=== PATIENT | female | born 2000 | race Caucasian/White ===

== ENCOUNTER 2021-12-15 13:14 | Observation (INO) | payer OTHER, SELFPAY ==
[2021-12-15 13:37] VITALS: BP 123/58; PULSE 80
[2021-12-15 13:42] VITALS: BMI 34.1
--- NOTE | 2021-12-15 13:44 | OBADM ---
This patient, Jessica Paredes, admitted to the OB room OB Post 115 for observation. Patient/family oriented to hospital policies and general routines including ID bracelet, bed and alarms, visiting hours, pain management, procedures, bathroom and other care routines, personal items, smoking policy, room service/diet, and visiting hours. Patient/Family are encouraged to report perceived risks to care and to ask questions if they do not understand what they are told or what they should do.
[2021-12-15 13:46] VITALS: BP 122/63; PULSE 80
--- NOTE | 2021-12-15 13:59 | PC.NURSE ---
1356--Reported pt's symptoms to Simón Fonseca CNM. Instructions given for pt to tran binder to help support abdomen and continue Tylenol PRN.
[2021-12-15 14:01] VITALS: BP 82/58; PULSE 72
[2021-12-15 14:10] VITALS: TEMP 36.6
--- NOTE | 2021-12-18 07:20 | PM.OBTRLD ---
OB - Triage/Final Diagnosis Visit Information Date of evaluation: 12/15/21 Reason for evaluation: threatened labor Comments/Additional reasons for admission: I have assessed the risk for this patient, Jessica Knight Reggie, and determined that she would benefit from observation care.
== END 2021-12-15 14:25 | disposition home or self-care (01) ==
PROVIDERS: Admitting Provider Obstetrics & Gynecology; Visit Provider Obstetrics & Gynecology
DX: O47.02 False labor before 37 completed weeks of gestation, second trimester (principal); Z3A.22 22 weeks gestation of pregnancy
CPT/HCPCS: G0378; G0379

== ENCOUNTER 2022-01-14 08:16 | Emergency (ER) | payer OTHER, SELFPAY ==
--- NOTE | 2022-01-14 08:21 | ED.URI ---
HPI - URI/Sore Throat General Chief Complaint: Upper Respiratory Infection Stated Complaint: Coughing up flem Time Seen by Provider: 01/14/22 08:28 Source: patient, RN notes reviewed and old records reviewed Mode of arrival: ambulatory Limitations: no limitations History of Present Illness HPI Narrative: 21-year-old female presents to the [facility] with complaints of cough for 1 week. Has tried an allergy relief medication. Denies any fevers. Denies any chest pain or shortness of breath. Patient is with twins (27 weeks), OB is [facility] Dr. Cunningham. Has not called OB Related Data Home Medications Medication Instructions Recorded Confirmed Classic 1 tablet PO DAILY 12/15/21 01/14/22 aspirin 81 mg chewable tablet 81 mg PO DAILY 12/15/21 01/14/22 levothyroxine 100 mcg tablet 1 tablet PO DAILY 12/15/21 01/14/22 sertraline 50 mg tablet 50 mg PO DAILY 01/14/22 01/14/22 Allergies Allergy/AdvReac Type Severity Reaction Status Date / Time No Known Allergies Allergy Verified 01/14/22 08:23 Review of Systems Review of Systems: All systems reviewed & are unremarkable except as noted in HPI and below Constitutional: Constitutional: Reports no additional constitutional complaints, Denies chills and Denies fever(s) Eyes: Eyes: Reports no additional eye complaints ENT: Reports as per HPI and Reports nasal congestion Cardiovascular: Cardiovascular: Reports no additional cardiovascular complaints Respiratory: Respiratory: Reports as per HPI and Reports cough Gastrointestinal: Gastrointestinal: Reports no additional gastrointestinal complaints Musculoskeletal: Musculoskeletal: Reports no additional musculoskeletal complaints Integumentary/Breasts: Skin/Breast: Reports system reviewed and no additional complaints, except as docu Neurologic: Reports system reviewed and no additional complaints, except as documented Psychiatric: Psychiatric: Reports no additional psychiatric complaints Allergic/Immunologic: Allergic/Immunologic: Reports no additional allergic/immunologic complaints [facility] Past Medical History Medical History (Updated 01/14/22 @ 14:24 by Jen Nichols APRN) No significant medical problems Social History Social History (Updated 01/14/22 @ 14:22 by Jen Nichols APRN) Gender identity (if verbalized by the patient): Female Comments At the time of my signature, I reviewed and agree with the nursing past medical, surgical, social, and family history. There is no relevant family history pertinent to the patient complaint. Exam Const: General: healthy appearing, no acute distress and alert Nutritional Appearance: well nourished Orientation/consciousness: patient oriented x3 Limitations: no limitations HENMT: Head: normal to inspection Ears: external ears normal, EAC's normal and TM abnormal bulging bilateral and with fluid behind the TM bilateral; not dull, not erythematous and with no loss of landmarks Throat: uvula midline, postnasal drainage and no uvular edema Eyes: General: appearance normal, both eyes and all related structures Pupils: Equal, round and reactive pupils present Neck: Neck: normal visual inspection, no lymphadenopathy and no meningeal signs Chest: Chest palpation & inspection: normal inspection of the chest Resp: Effort & Inspection: normal respiratory effort and no use of accessory muscles Auscultation: clear to auscultation bilaterally, no crackles, no rales, no rhonchi and no wheezes Cardio: Rate: regular rate Rhythm: regular rhythm Back/Spine/Pelvis: Cervical Spine: normal cervical lordosis Thoracic/Lumbar Spine: thoracic and lumbar spine normal to inspection Skin: General skin exam: normal color Rashes: no rashes Wounds: no wounds Neuro: General: patient oriented x3, moves all extremities, no meningeal signs and no focal motor deficits Cranial nerves: Yes Equal, round and reactive pupils present Speech: normal speech G
[2022-01-14 08:22] VITALS: BP 129/60; PULSE 85; RESP 20; TEMP 36.1; O2SAT 99
== END 2022-01-14 08:40 | disposition home or self-care (01) ==
PROVIDERS: Emergency Provider Nurse Practitioner
DX: O99.891 Other specified diseases and conditions complicating pregnancy (principal); Z3A.27 27 weeks gestation of pregnancy; H65.03 Acute serous otitis media, bilateral; O90.89 Other complications of the puerperium, not elsewhere classified; R09.82 Postnasal drip
CPT/HCPCS: 99211; G0463

== ENCOUNTER 2022-02-24 15:25 | Outpatient (RCR) | payer OTHER, SELFPAY ==
[2022-02-24 17:47] LABS: Appearance Urine Slightly Cloudy (Clear); Bilirubin Urine Negative (Negative); Blood Urine Negative (Negative); Color Urine Yellow (Yellow); Glucose Urine UA Negative (Negative); Ketones Urine Negative (Negative); Leukocyte Esterase Ur Negative LEU/UL (NEGATIVE); Nitrate Urine Negative (Negative); Protein Urine Negative (Negative); Specific Grav Ur 1.015 (1.001-1.035); Urobilinogen Urine 0.2 mg/dL (<2.0)
[2022-02-24 17:53] LABS: Add Urine Microscopic? YES; Amorphous Sediment Urine Few; Bacteria Urine Trace /hpf; RBC Urine 0-2 /hpf (0-2); Squamous Epithelial Cell Urine Rare /hpf (Few); WBC Urine 0-3 /hpf (0-3)
[2022-02-24 19:31] VITALS: BP 136/66; PULSE 48
== END 2022-05-25 23:59 | disposition home or self-care (01) ==
LOC: ANHOBOP 15:25
PROVIDERS: Visit Provider Obstetrics & Gynecology
DX: O30.003 Twin pregnancy, unspecified number of placenta and unspecified number of amniotic sacs, third trimester (principal); Z3A.33 33 weeks gestation of pregnancy
CPT/HCPCS: 59025; 81001; 87086; 87088; 87147

== ENCOUNTER 2022-03-27 11:58 | Outpatient (CLI) | payer OTHER, SELFPAY ==
[2022-03-27 12:47] LABS: Total Volume 24 Hour Urine 800 ml
[2022-03-27 12:55] LABS: Total Protein Urine 24 Hr 360 mg/24hr (28-141); Total Protein Urine Random 45 mg/dL
== END 2022-03-27 11:59 | disposition home or self-care (01) ==
LOC: ANHLAB 12:05
PROVIDERS: Visit Provider Obstetrics & Gynecology
DX: O13.9 Gestational [pregnancy-induced] hypertension without significant proteinuria, unspecified trimester (principal); Z3A.00 Weeks of gestation of pregnancy not specified
CPT/HCPCS: 81050; 84156

== ENCOUNTER 2022-03-28 05:51 | Inpatient (IN) | payer OTHER, SELFPAY ==
[2022-03-28] VITALS (170 sets, daily range): BP systolic 83–156; BP diastolic 50–83; PULSE 52–86; RESP 16–18; TEMP 36.2–37.3; O2SAT 94–100; BMI 40.9
--- OUTSIDE RECORDS SUMMARY | 2022-03-28 05:57 | XMS_ITS ---
:2000 Author Organization [facility] Address [address] [place] [address] Phone Care Team Providers Name Role Phone PAMELA RODRIGUEZ MD Primary Care Provider [phone] Problems Includes: Active, inactive, and resolved Problems All Visits Onset Date - Resolved Date - Provider Condition St atus Time Time Depression with 02/26/2021 - AVIVA Silver Active Anxiety 2:54PM ELYSSA FUEL HOUSE ATTENDANT-BC Last Documented On 02/26/2021 2:54PM ; [facility] Primary Hypothyroidism 11/19/2018 - 12:00AM AVIVA BERGERON FUEL HOUSE ATTENDANT-BC Active Last Documented On 11/19/2018 1:50PM ; [facility] Vitamin D Deficiency 11/19/2018 - 12:00AM AVIVA SANFORD FUEL HOUSE ATTENDANT-BC Active Last Documented On 12/16/2019 1:25PM ; [facility] Plan of Treatment Pending Tests Order Diagnosis Results Due Ordering Provi makenzie Lab TSH WITH REFLEX TO FREE 01/24/22 GARDENIA BERGERON T4 FUEL HOUSE ATTENDANT-BC Lab VITAMIN D PANEL 03/04/22 AVIVA SANFORD FUEL HOUSE ATTENDANT-BC Referrals To Diagnosis Upper Marker Unspecified abnormal ities of heart beat Findings
--- OUTSIDE RECORDS SUMMARY | 2022-03-28 05:57 | XMS_ITS ---
Care Plan - [facility] Created on:March 28, 2022 Patient:ADELFO HERRERA Sex:Female :2000 Author Organization [facility] Address [address] [place] [address] Phone Care Team Providers Name Role Phone JENNIFER UNDERWOOD, PAMELA Rivera Primary Care Provider [phone]
--- OUTSIDE RECORDS SUMMARY | 2022-03-28 05:58 | XMS_ITS ---
:2000 Author Care Team Providers Name Role Phone CunninghamKinga avitiase Primary Care Provider Unavailable Allergies Code Code System Name Reaction Severity Status Onset NKDA ? Medications Name Status Start Date Stop Date ? ? ergocalciferol (vitamin D2) 1,250 mcg (50,000 unit) capsule Acti ve ? Not available TAKE 1 CAPSULE BY MOUTH EVERY WEEK escitalopram 10 mg tablet Completed ? 2021 TAKE 1 TABLET BY MOUTH DAILY levothyroxine Completed ? 11/26/2021 levothyroxine 100 mcg tablet Active ? Not available TAKE 1 TABLET BY MOUTH DAILY levothyroxine 75 mcg tablet Completed ? 09/07 TAKE 1 TABLET BY MOUTH DAILY metoclopramide 10 mg tablet Active ? Not available TAKE 1 TABLET BY MOUTH FOUR TIMES DAILY sertraline 50 mg tablet Active ? Not avai lable valacyclovir 500 mg tablet Active ? Not a vailable TAKE 1 TABLET BY MOUTH TWICE DAILY Problems Name Status Onset Date Source ? Active 10/03/2021 ? Group B Streptococcus Carrier Active 02/26/2022 ? Hypothyroidism Active ? ? Anxiety Active ? ? Dichorionic Diamniotic Twin Active ? ? Procedures Date Name Performed by ? 10/03/2021 US, Obstetric, 1St Trimester [place] [address] [place] [address] ([address]) 10/03/2021 US, Obstetric, 1St Trimester, Additional [place] [address]
--- OUTSIDE RECORDS SUMMARY | 2022-03-28 05:58 | XMS_ITS | Encounter Summary ---
:2000 Author Reason for Visit OB visit Assessment and Plan 1. Dichorionic diamniotic twin pregnanc y Discussion Note: None recorded.Patient educational handouts: No information available. Plan of Care Reminders Provider Appointments None recorded. ? ? Lab None recorded. ? ? Referral None recorded. ? ? Procedures None recorded. ? ? Surgeries None recorded. ? ? Imaging None recorded. ? ? Medications Name Start Date ? ? ergocalciferol (vitamin D2) 1,250 mcg (50,000 unit) ca psule ? TAKE 1 CAPSULE BY MOUTH EVERY WEEK levothyroxine 100 mcg tablet ? TAKE 1 TABLET BY MOUTH DAILY metoclopramide 10 mg tablet ? TAKE 1 TABLET BY MOUTH FOUR TIMES DAILY sertraline 50 mg tablet ? TAKE 1 TABLET BY MOUTH EVERY DAY valacyclovir 500 mg tablet ? TAKE 1 TABLET BY MOUTH TWICE DAILY Medications Administered None recorded. Vitals Height Weight BMI Blood Pressure 5 ft 6.25 in 219 lbs 35.1 kg/m2 124/78 mm[Hg] Results Lab Results None recorded. Allergies Code Code System Name Reaction Severity Onset NKDA ? ? ? Problems Name Status Onset Date Source ? Active 10/03/2021 ? Group B Streptococcus Carrier Active 02/26/2022 ? Hypothyroidism Active ? ? Anxiety Active ? ? Dichorionic Diamniotic Twin Active ? ? Procedures None recorded. Vaccine List None recorded. Social History Tobacco Smoking Status Unknown If Ever Smoked What type of diet are you following? REGULAR What is the high
--- OUTSIDE RECORDS SUMMARY | 2022-03-28 05:58 | XMS_ITS | Clinical Summary ---
:2000 Author Organization [facility] Address [address], [place] Phone Care Team Providers Name Role Phone PAMELA RODRIGUEZ MD Primary Care Provider [phone] Reason for Visit and Chief Complaint The Chief Complaint is: WWE, no c/o, no new partners. Five partners in her lifetime Problems Includes: Problems addressed during this encounter and other active Problems All Visits Onset Date - Resolved Date - Provider Condition St atus Time Time Depression with 02/26/2021 - AVIVA Silver Active Anxiety 2:54PM ELYSSA IGNITER CAPPER-BC Last Documented On 02/26/2021 2:54PM ; [facility] Primary Hypothyroidism 11/19/2018 - 12:00AM AVIVA BERGERON IGNITER CAPPER-BC Active Last Documented On 11/19/2018 1:50PM ; [facility] Vitamin D Deficiency 11/19/2018 - 12:00AM AVIVA Hanson ARGRAVE IGNITER CAPPER-BC Active Last Documented On 12/16/2019 1:25PM ; [facility] Plan of Treatment - Clinical summary provided to patient Assessments Includes: Assessments from this encounter - NORMAL FEMALE EXAM [Z01.419 - Encounte r for gynecological examination (general) (routine) without abnormal findings] Instructions Includes: Instructions from this encounter
--- OUTSIDE RECORDS SUMMARY | 2022-03-28 05:58 | XMS_ITS | Encounter Summary ---
:2000 Author Reason for Visit OB visit Assessment and Plan 1. Dichorionic diamniotic twin pregnanc y 2. Group B Streptococcus carrier Discussion Note: None recorded.Patient educational handouts: No [...] BMI Blood Pressure 5 ft 6.25 in 238 lbs 38.1 kg/m2 129/77 mm[Hg] Results Lab Results None recorded. Allergies [...] If Ever Smoked What type of diet ar
--- OUTSIDE RECORDS SUMMARY | 2022-03-28 05:58 | XMS_ITS | Clinical Summary ---
:2000 Author Organization [facility] Address [address] [place] [address] Phone Care Team Providers Name Role Phone PAMELA RODRIGUEZ MD Primary Care Provider [phone] Reason for Visit and Chief Complaint The Chief Complaint is: pt is here for check up on escitalopram. pt states it is working good for her Problems Includes: Problems addressed during this encounter and other active Problems Current Visit Onset Date - Resolved Date - Provider Condition S tatus Time Time Depression with 02/26/2021 - AVIVA Silver Active Anxiety 2:54PM ELYSSA PEDIATRIC SURGEON-BC Last Documented On 02/26/2021 2:54PM ; [facility] Past Visits Onset Date - Resolved Date - Provider Condition St atus Time Time Primary Hypothyroidism 11/19/2018 - AVIVA Silver Activ e 12:00AM ELYSSA PEDIATRIC SURGEON-BC Last Documented On 11/19/2018 1:50PM ; [facility] Vitamin D Deficiency 11/19/2018 - 12:00AM AVIVA Silver H ARGRAVE PEDIATRIC SURGEON-BC Active Last Documented On 12/16/2019 1:25PM ; [facility] Plan of Treatment Pending Tests Order Diagnosis Results Due Ordering Provi makenzie Lab TSH WITH REFLEX TO FREE 01/24/22 GARDENIA MOGRAVE T4 PEDIATRIC SURGEON-BC [place]
--- OUTSIDE RECORDS SUMMARY | 2022-03-28 05:58 | XMS_ITS | Encounter Summary ---
:2000 Author Reason for Visit OB visit Assessment and Plan 1. Dichorionic diamniotic twin pregnanc y 2. Anxiety ? Zoloft 50 mg tablet 3. Hypothyroidism Discussion Note: None recorded.Patient educational handouts: No [...] BMI Blood Pressure 5 ft 6.25 in 216 lbs 34.6 kg/m2 128/77 mm[Hg] Results Lab Results None recorded. Allergies [...]
--- OUTSIDE RECORDS SUMMARY | 2022-03-28 05:58 | XMS_ITS | Encounter Summary ---
[...] BMI Blood Pressure 5 ft 6.25 in 229 lbs 36.7 kg/m2 113/67 mm[Hg] Results Lab Results None recorded. Allergies [...] type of diet are you following? REGULAR Are you able t
--- OUTSIDE RECORDS SUMMARY | 2022-03-28 05:58 | XMS_ITS | Clinical Summary ---
:2000 Author Organization [facility] Address [address], [place] Phone Care Team Providers Name Role Phone PAMELA RODRIGUEZ MD Primary Care Provider [phone] Reason for Visit and Chief Complaint The Chief Complaint is: Med check and Pt would like to get her thyroid labs done Problems Includes: Problems addressed during this encounter and other active Problems Current Visit Onset Date - Resolved Date - Provider Condition S tatus Time Time Depression with 02/26/2021 - AVIVA Silver Active Anxiety 2:54PM ELYSSA SR SOLUTIONS CONSULTANT-BC Last Documented On 02/26/2021 2:54PM ; [facility] Primary Hypothyroidism 11/19/2018 - 12:00AM AVIVA BERGERON SR SOLUTIONS CONSULTANT-BC Active Last Documented On 11/19/2018 1:50PM ; [facility] Vitamin D Deficiency 11/19/2018 - 12:00AM AVIVA Hanson ARGRAMARAH SR SOLUTIONS CONSULTANT-BC Active Last Documented On 12/16/2019 1:25PM ; [facility] Plan of Treatment Pending Tests Order Diagnosis Results Due Ordering Provi makenzie Lab THYROID PANEL (TSH & 02/26/21 STEFAN BERGERON FREE T4) SR SOLUTIONS CONSULTANT-BC Lab VITAMIN B12 02/26/21 AVIVA DE LEON [facility] Lab LIPID PANEL 02/26/21 AVIVA DE LEON
--- OUTSIDE RECORDS SUMMARY | 2022-03-28 05:58 | XMS_ITS | Encounter Summary ---
:2000 Author Reason for Visit OB visit Assessment and Plan 1. Dichorionic diamniotic twin pregnanc y 2. Group B Streptococcus carrier 3. Hypothyroidism Discussion Note: None recorded.Patient educational [...] BMI Blood Pressure 5 ft 6.25 in 240 lbs 38.4 kg/m2 118/75 mm[Hg] Results Lab Results None recorded. Allergies Code Code System Name Reaction Severity Onset NKDA ? ? ? Problems Name Status Onset Date Source ? Active 10/03/2021 ? Group B Streptococcus Carrier Active 02/26/2022 ? Hypothyroidism Active ? ? Anxiety Active ? ? Dichorionic Diamniotic Twin Active ? ? Procedures None recorded. Vaccine List None recorded. Social History Tobacco Smoking Status Unk
--- OUTSIDE RECORDS SUMMARY | 2022-03-28 05:58 | XMS_ITS | Encounter Summary ---
[...] BMI Blood Pressure 5 ft 6.25 in 249 lbs 39.9 kg/m2 135/83 mm[Hg] Results Lab Results None recorded. Allergies [...] If Ever Smoked What type of diet a
--- OUTSIDE RECORDS SUMMARY | 2022-03-28 05:58 | XMS_ITS | Clinical Summary ---
:2000 Author Organization [facility] Address [address] [place], [place] Phone Care Team Providers Name Role Phone PAMELA RODRIGUEZ MD Primary Care Provider [phone] Reason for Visit and Chief Complaint LAB Problems Includes: Problems addressed during this encounter and other active Problems All Visits Onset Date - Resolved Date - Provider Condition St atus Time Time Depression with 02/26/2021 - AVIVA Silver Active Anxiety 2:54PM ELYSSA FLYING INSTRUCTOR-BC Last Documented On 02/26/2021 2:54PM ; [facility] Primary Hypothyroidism 11/19/2018 - 12:00AM AVIVA MOGRAVE FLYING INSTRUCTOR-BC Active Last Documented On 11/19/2018 1:50PM ; [facility] Vitamin D Deficiency 11/19/2018 - 12:00AM AVIVA FERGUSONVE FLYING INSTRUCTOR-BC Active Last Documented On 12/16/2019 1:25PM ; [facility] Plan of Treatment Pending Tests Order Diagnosis Results Due Ordering Provi makenzie Lab TSH WITH REFLEX TO FREE 01/24/22 GARDENIA Silver ELYSSA T4 FLYING INSTRUCTOR-BC Lab VITAMIN D PANEL 03/04/22 AVIVA Hanson ARGRAVE FLYING INSTRUCTOR-BC Assessments Includes: Assessments from this encounterNo Assessments Recorded Medical Equipment - Implanted Devices Includes: Current Devices
--- OUTSIDE RECORDS SUMMARY | 2022-03-28 05:58 | XMS_ITS | Encounter Summary ---
[...] BMI Blood Pressure 5 ft 6.25 in 224 lbs 35.9 kg/m2 106/70 mm[Hg] Results Lab Results None recorded. Allergies [...]
--- OUTSIDE RECORDS SUMMARY | 2022-03-28 05:58 | XMS_ITS | Clinical Summary ---
:2000 Author Organization [facility] Address [address], [place] Phone Care Team Providers Name Role Phone PAMELA RODRIGUEZ MD Primary Care Provider [phone] Reason for Visit and Chief Complaint LAB Problems Includes: Problems addressed during this encounter and other active Problems All Visits Onset Date - Resolved Date - Provider Condition St atus Time Time Depression with 02/26/2021 - AVIVA Silver Active Anxiety 2:54PM ELYSSA ASPHALT PAVING SUPERVISOR-BC Last Documented On 02/26/2021 2:54PM ; [facility] Primary Hypothyroidism 11/19/2018 - 12:00AM AVIVA MOGRAVE ASPHALT PAVING SUPERVISOR-BC Active Last Documented On 11/19/2018 1:50PM ; [facility] Vitamin D Deficiency 11/19/2018 - 12:00AM AVIVA FERGUSONVE ASPHALT PAVING SUPERVISOR-BC Active Last Documented On 12/16/2019 1:25PM ; [facility] Plan of Treatment Pending Tests Order Diagnosis Results Due Ordering Provi makenzie Lab TSH WITH REFLEX TO FREE 01/24/22 GARDENIA Silver ELYSSA T4 ASPHALT PAVING SUPERVISOR-BC Lab VITAMIN D PANEL 03/04/22 AVIVA Hanson ARGRAVE ASPHALT PAVING SUPERVISOR-BC Assessments Includes: Assessments from this encounterNo Assessments Recorded Medical Equipment - Implanted Devices Includes: Current Devices
[2022-03-28 06:56] LABS: Basophils Percent Auto 0.2 % (0.2-1.2); Eosinophils Absolute Auto 0.1 K/mm3 (0-0.3); Eosinophils Percent Auto 0.7 % (0-4.4); Hematocrit 35.1 % (37.0-47.0); Hemoglobin 11.5 g/dL (12.0-15.0); Immature Granulocyte Absolute 0.08 K/mm3 (0.00-0.031); Lymphocytes Absolute Auto 1.42 K/mm3 (0.9-3.2); Lymphocytes Percent Auto 17.7 % (18.3-44.2); Mean Corpuscular HGB Conc 32.8 g/dl (32-36); Mean Corpuscular Hemoglobin 30.2 pg (26-34); Mean Corpuscular Volume 92.1 fl (80-100); Mean Platelet Volume 12.1 fl (7.4-10.4); Monocytes Absolute Auto 0.7 K/mm3 (0.1-0.6); Monocytes Percent Auto 8.2 % (2.6-8.5); Neutrophils Absolute Auto 5.8 K/mm3 (1.3-6.7); Neutrophils Percent Auto 72.2 % (45.5-73.1); Platelet Count Result 162 k/mm3 (150-375); Red Blood Count 3.81 M/mm3 (4.2-5.4); Red Cell Distribution Width 14.6 % (11.5-14.5)
[2022-03-28] MEDS: AMPICILLIN 2 GM/NS 100 ML 2 GM/100 ML BAG IVPB (07:13)
[2022-03-28] MEDS: LACTATED RINGERS 1,000 ML 125 ML IV CONT ×3 (07:13→16:56)
[2022-03-28] MEDS: OXYTOCIN 30 UNITS/NS 500 ML 30 UNITS/500 ML BAG 6 UNITS IV CONT (07:14)
--- NOTE | 2022-03-28 07:25 | LDADM ---
This patient, Jessica Paredes, was admitted to Labor/Delivery/Recovery 102 on 03/28/22 at 05:51. Plans for labor, pain management and were discussed with patient. Patient/family oriented to hospital policies and general routines including ID bracelet, bed and alarms, visiting hours, pain management, procedures, bathroom and other care routines, personal items, smoking policy, room service/diet and guest tray routines, security routines, and visiting hours. Patient/Family are encouraged to report perceived risks to care and to ask questions if they do not understand what they are told or what they should do. See OBIX for further documentation.
--- NOTE | 2022-03-28 07:30 | P.HP_ITS ---
H&P: HPI History of Present Illness Date/Time: 03/28/22 07:30 Chief Complaint: induction of labor, preeclampsia, di/di twins Narrative: Jessica is a 21yo G1 at 37.4 with di di twins and mild PreEclampsia diagnosed yesterday by 24 hour urine of 330. No severe BPs. Other labs wnl. Denies KLEIN/BV/EP. otherwise complicated by GBS pos and baby A with SUA. US at 36w Baby A 6-10 and baby B 5-14 with 11% intertwin discordance. Vertex- vertex. Jessica has hypothyroidism and anxiety. Review of Systems Review of Systems: All systems reviewed & are unremarkable except as noted in HPI and below PMFSH Past Medical History Medical History (Updated 03/28/22 @ 07:34 by Kinga Cunningham MD) No significant medical problems Family History Family History (Updated 03/17/22 @ 15:27 by Lydia Macias RN) Mother Hyperthyroidism Grandparent Colon cancer Social History Social History (Updated 01/14/22 @ 14:22 by Jen Nichols APRN) Smoking status: Never smoker Second hand tobacco smoke exposure: No Substance use: never Gender identity (if verbalized by the patient): Female Spiritual care concerns: No Meds Home Medications and Allergies Home Medications Medication Instructions Recorded Confirmed Type Classic 1 tablet PO DAILY 12/15/21 03/28/22 History aspirin 81 mg chewable tablet 81 mg PO DAILY 12/15/21 03/28/22 History levothyroxine 100 mcg tablet 1 tablet PO DAILY 12/15/21 03/28/22 History sertraline 50 mg tablet 50 mg PO DAILY 01/14/22 03/28/22 History Allergies Allergy/AdvReac Type Severity Reaction Status Date / Time No Known Allergies Allergy Verified 03/28/22 07:21 Vital Signs Vital Signs - 24 hr 03/28/22 06:14 Pulse Rate 71 Blood Pressure 152/70 H Exam Const: General: no acute distress Resp: Effort & Inspection: normal respiratory effort Auscultation: clear to auscultation bilaterally Cardio: Rate: regular rate Rhythm: regular rhythm GI: GI Palp: Yes Soft to palpation Extrem: General: normal to inspection H&P: Results Labs Labs: Short CBC 03/28/22 Range/Units 06:44 WBC 8.0 (4.5-10.0) K/mm3 Hgb 11.5 L (12.0-15.0) g/dL Hct 35.1 L (37.0-47.0) % Plt Count 162 (150-375) k/mm3 Assessment and Plan Assessment and plan (1) Dichorionic diamniotic twin gestation: Code(s): O30.049 - Twin , dichorionic/diamniotic, unspecified trimester Status: Acute (2) GBS (group B Streptococcus carrier), +RV culture, currently : Code(s): O99.820 - Streptococcus B carrier state complicating Status: Acute (3) Preeclampsia: Code(s): O14.90 - Unspecified pre-eclampsia, unspecified trimester Status: Acute Plan ampicillin FHT category 1 x2 pitocin per protocol AROM clear 1.5/60/-2/soft v/v on BSUS discussed risks of twin delivery, breech extraction, need for CS of second twin, etc will deliver in OR questions answered.
[2022-03-28 10:18] LABS: Rapid Plasma Reagin Non-Reactive (NonReactive)
[2022-03-28] MEDS: AMPICILLIN 1 GM/NS 50 ML 1 GM/50 ML BAG IVPB ×4 (10:58→22:56)
--- NOTE | 2022-03-28 13:06 | WPDANESEPP ---
Anes - Eval Pre Procedure Procedure: labor epidural Date/Time: 03/28/22 13:06 Preop Diagnosis: labor pain Pre Op Diagnosis: IOL Patient Data Age: 21 Gender: F Height: 1.68 m Weight: 115 kg Last Vital Signs Temp 36.9 C 03/28/22 13:00 Pulse 72 03/28/22 13:01 BP 135/63 03/28/22 13:01 O2 Del Method Room Air 03/28/22 06:00 Allergies Allergy/AdvReac Type Severity Reaction Status Date / Time No Known Allergies Allergy Verified 03/28/22 07:21 Home Medications Medication Instructions Recorded Confirmed Type Classic 1 tablet PO DAILY 12/15/21 03/28/22 History aspirin 81 mg chewable tablet 81 mg PO DAILY 12/15/21 03/28/22 History levothyroxine 100 mcg tablet 1 tablet PO DAILY 12/15/21 03/28/22 History sertraline 50 mg tablet 50 mg PO DAILY 01/14/22 03/28/22 History Laboratory Tests 03/28/22 03/28/22 03/28/22 06:44 06:44 06:44 WBC 8.0 K/mm3 K/mm3 (4.5-10.0) RBC 3.81 M/mm3 L M/mm3 (4.2-5.4) Hgb 11.5 g/dL L g/dL (12.0-15.0) Hct 35.1 % L % (37.0-47.0) MCV 92.1 fl fl (80-100) MCH 30.2 pg pg (26-34) MCHC 32.8 g/dl g/dl (32-36) RDW 14.6 % H % (11.5-14.5) Plt Count 162 k/mm3 k/mm3 (150-375) MPV 12.1 fl H fl (7.4-10.4) Immature Gran % (Auto) 1.0 % H % (0-0.5) Neut % (Auto) 72.2 % % (45.5-73.1) Lymph % (Auto) 17.7 % L % (18.3-44.2) [place] % (Auto) 8.2 % % (2.6-8.5) Eos % (Auto) 0.7 % % (0-4.4) Baso % (Auto) 0.2 % % (0.2-1.2) Lymph # (Auto) 1.42 K/mm3 K/mm3 (0.9-3.2) [place] # (Auto) 0.7 K/mm3 H K/mm3 (0.1-0.6) Eos # (Auto) 0.1 K/mm3 K/mm3 (0-0.3) Baso # (Auto) 0.0 K/mm3 K/mm3 (0.0-0.1) Abs Immat Gran (auto) 0.08 K/mm3 H K/mm3 (0.00-0.031) Absolute Neuts (auto) 5.8 K/mm3 K/mm3 (1.3-6.7) Absolute Nucleated RBC 0.0 K/mm3 K/mm3 (0.0-0.012) Nucleated RBC % 0.0 % % (0.0-0.2) RPR Non-reactive (NonReactive) Blood Type O Positive Antibody Screen Negative Patient hx anesthesia problems: none Family hx anesthesia problems: none Results Review: All pre-operative results and documents have been reviewed as part of the pre-operative evaluation. [facility] Past Medical History Medical History No significant medical problems Family History Family History Mother Hyperthyroidism Grandparent Colon cancer Social History Social History Smoking status: Never smoker Second hand tobacco smoke exposure: No Substance use: never Gender identity (if verbalized by the patient): Female Spiritual care concerns: No Exam Day of Procedure 03/28/22 13:06
[2022-03-28] MEDS: ONDANSETRON INJ 4 MG/2 ML VIAL IV PUSH (21:08)
[2022-03-29] VITALS (77 sets, daily range): BP systolic 101–139; BP diastolic 36–124; PULSE 36–120; RESP 16–18; TEMP 36.4–37.6; O2SAT 79–100
[2022-03-29] MEDS: OXYTOCIN 30 UNITS/NS 500 ML 30 UNITS/500 ML BAG 125 UNITS IV CONT (03:13)
[2022-03-29] MEDS: miSOPROStol 200 MCG TABLET 800 MCG RECTAL (03:13)
--- NOTE | 2022-03-29 03:24 | P.PCNOB_ITS ---
OB - Delivery Note Procedure Delivery date: 03/29/22 Procedure: twins Events: Positive Group B Strep (GBS) and Preeclampsia w/o severe features Induction method: AROM and Per Pitocin Protocol Delivery monitor: External FHT and Internal Uterine Route of delivery: Episiotomy description: None Laceration Description: Perineal - 1st Degree Delivery repair: vicryl Quantitative Blood Loss (ml): 1,100 Anesthesia type: Epidural Disposition: Floor Narrative: Delivery was in OR under double set up. With adequate expulsive efforts by the mother, Baby A's head was delivered OA. The baby's anterior shoulder was delivered under the pubic symphysis without difficulty. The posterior shoulder and the rest of the baby delivered without difficulty. The infant was handed to nursery after the cord was clamped and cut. Ultrasound was used to confirm the second baby was vertex. AROM of Baby B was done with clear fluid. Baby came down face presentation and was able to be converted to vertex easily and atraumatically. After several contractions, Baby B's head was delivered OA. The anterior shoulder delivered easily and the remainder of the baby followed easily. The baby was placed on mom's abdomen and cord was clamped and cut. Following baby several large clots delivered. The placentas delivered spontaneously. Pitocin and cytotec were given for already significant EBL. A first degree laceration was repaired with 3-0 vicryl. [place] Baby Date of : 03/29/22 Time of : 02:08 Weeks of gestation at delivery: 37 gender: Male Weight (pounds): 7 Weight (ounces): 7 presentation: vertex Placenta delivery description: Spontaneous Cord Vessel Description: 3 Vessels score one minute: 9 score five minutes: 9 Twins 1: Date of : 03/29/22 Time of : 02:53 Weeks of gestation at delivery: 37 gender: Female Weight (pounds): 5 Weight (ounces): 15 presentation: vertex Placental delivery description: Spontaneous Cord Vessel Description: 3 Vessels score one minute: 7 score five minutes: 9
[2022-03-29] MEDS: WITCH HAZEL 40 PADS 1 PAD TOPICAL (05:17)
[2022-03-29] MEDS: BENZOCAINE 20% AER SPR (*SP) 56 GM CAN 1 SPRAY TOPICAL (05:17)
[2022-03-29] MEDS: IBUPROFEN 600 MG TABLET PO ×3 (05:27→21:50)
[2022-03-29 05:34] LABS: Hematocrit 30.1 % (37.0-47.0); Hemoglobin 9.9 g/dL (12.0-15.0)
--- NOTE | 2022-03-29 07:46 | OBPPTRN ---
Patient transferred to post room # 290 via wheelchair. Support person present. Oriented to unit, room, information board, rooming in, admission packet and security measures. Patient verbalizes understanding.
[2022-03-29] MEDS: POLYSACCHARIDE IRON COMPLEX 150 MG CAPSULE PO ×2 (12:58→21:39)
[2022-03-29] MEDS: LEVOTHYROXINE SODIUM 100 MCG TABLET PO (12:58)
[2022-03-29] MEDS: SERTRALINE HCL 50 MG TABLET PO (12:58)
[2022-03-29] MEDS: DOCUSATE SODIUM 100 MG CAPSULE PO ×2 (12:58→21:38)
[2022-03-29] MEDS: MULTIVIT/MIN/PREN/FOL AC/IRON TABLET 1 TAB PO (12:58)
--- NOTE | 2022-03-30 03:14 | PC.NURSE ---
Entry at 2140 on 03/29 for critical results was a charting selection error and the computer would not let me leave without entering and then deleting.
[2022-03-30] MEDS: LEVOTHYROXINE SODIUM 100 MCG TABLET PO (07:38)
[2022-03-30] MEDS: MULTIVIT/MIN/PREN/FOL AC/IRON TABLET 1 TAB PO (08:35)
[2022-03-30] MEDS: DOCUSATE SODIUM 100 MG CAPSULE PO ×2 (08:35→16:07)
[2022-03-30] MEDS: SERTRALINE HCL 50 MG TABLET PO (08:35)
[2022-03-30] MEDS: POLYSACCHARIDE IRON COMPLEX 150 MG CAPSULE PO ×2 (08:35→16:07)
[2022-03-30 08:40] VITALS: BP 130/76; PULSE 63; RESP 16; TEMP 36.6; O2SAT 98
--- NOTE | 2022-03-30 10:04 | P.PNOB_ITS ---
OB - PN: Subj Subjective Date/time seen: 03/30/22 10:04 Patient comments: no complaints and pain well controlled baby status: doing well and nursing well [place] feeding status: breast and bottle feeding Narrative: Denies KLEIN/VC/EP. Normotensive since delivery. UOP adequate but not copious diuresis yet. OB - PN: Obj Data Labs CBC & Chem 7: 03/29/22 05:22 OB - PN A/P Assessment and Plan (1) Preeclampsia: Code(s): O14.90 - Unspecified pre-eclampsia, unspecified trimester Status: Acute (2) Twin delivered: Code(s): O30.009 - Twin , unspecified number of placenta and unspecified number of amniotic sacs, unspecified trimester Status: Acute Plan day: 1 Plan: routine care Comments: BPs great. anticipate diuresis likely home tomorrow. Time Spent With Patient Time: Total time spent is greater than 50% in coordination of care (as documented) at patient's floor/unit and/or counseling patient: Time with patient: less than 15 minutes Exam Narrative: NAD abdomen soft, nontender, fundus firm below the umbilicus Extremities nontender, 2+ edema
[2022-03-30 12:15] VITALS: BP 137/68; PULSE 79; RESP 16; TEMP 37.1
[2022-03-30] MEDS: IBUPROFEN 600 MG TABLET PO (16:07)
[2022-03-30 16:15] VITALS: BP 127/57; PULSE 62; RESP 16; TEMP 36.8
[2022-03-30 20:25] VITALS: BP 133/57; PULSE 78; RESP 16; TEMP 36.2
[2022-03-30 22:45] VITALS: BP 125/70; PULSE 54; RESP 16; TEMP 36.3
--- NOTE | 2022-03-31 07:20 | PM.OBPNVD ---
OB - PN: Subj Subjective Date/time seen: 03/31/22 07:20 Patient comments: no complaints and pain well controlled baby status: doing well [place] feeding status: breast and bottle feeding Narrative: [place] not latching well, but improving. Otherwise doing great. OB - PN: Obj Data Labs CBC & Chem 7: 03/29/22 05:22 OB - PN A/P Plan day: 1 Plan: routine care and discharge home Comments: consult today. Time Spent With Patient Time: Total time spent is greater than 50% in coordination of care (as documented) at patient's floor/unit and/or counseling patient: Time with patient: less than 15 minutes Exam Narrative: NAD abdomen soft, nontender, fundus firm below the umbilicus Extremities nontender, 1+ edema
--- NOTE | 2022-03-31 07:23 | PM.OBDSVD ---
DS: Admitting Diagnosis Discharge Date 03/31/22 Admitting Diagnosis twin IUP 37.4, PreEclampsia with mild features DS: Discharge Diagnosis Discharge Diagnosis (1) Twin delivered: Code(s): O30.009 - Twin , unspecified number of placenta and unspecified number of amniotic sacs, unspecified trimester Status: Acute (2) Preeclampsia: Code(s): O14.90 - Unspecified pre-eclampsia, unspecified trimester Status: Acute OB - DS: Summary Hospital Course Hospital Course: Jessica was admitted for IOL at 37.4 secondary to mild preeclampsia. She proceeded to have a vaginal delivery of vertex/vertex twins with hemorrhage of about 1100cc. Her course was uncomplicated and her blood pressures were normal following delivery. She was discharged home on PPD 2. OB Procedures : NST and Ultrasound OB Procedures Intrapartum: Spontaneous Vag Delivery OB Procedures: : None Peripartum Data Delivery Method: Natural Vaginal Laceration Description: Perineal - 1st Degree complications: none Status at Discharge Functional status at discharge: independent ambulation Time Spent with Patient Time attestation: Total time spent providing and/or coordinating discharge services: Exam Narrative: NAD abdomen soft, appropriately tender Ext non tender, 1+ edema Discharge Plan Discharge Attending physician on discharge: Kinga Cunningham Discharging Clinician: Kinga Cunningham Anticipated Discharge Date/Time: 03/31/22 07:21 Patient Disposition: Home, Self-Care Activity: pelvic rest Diet: regular Patient Instructions: Antibiotic Form Stand Alone Forms: General Discharge Information Follow-up/Referrals: Kinga Cunningham MD [Physician] - 1 Week Discharge Medications: Continued sertraline 50 mg tablet 50 mg PO DAILY levothyroxine 100 mcg tablet 1 tablet PO DAILY Classic 1 tablet PO DAILY Discontinued aspirin 81 mg Tablet,Chewable 81 mg PO DAILY Date of admission: 03/28/22 05:51 Primary Care Provider: Priscilla Hernandez Admitting Provider: Kinga Cunningham Attending physician on admission: Kinga Cunningham Condition: Stable
[2022-03-31] MEDS: SERTRALINE HCL 50 MG TABLET PO (08:03)
[2022-03-31] MEDS: LEVOTHYROXINE SODIUM 100 MCG TABLET PO (08:03)
[2022-03-31] MEDS: MULTIVIT/MIN/PREN/FOL AC/IRON TABLET 1 TAB PO (08:03)
[2022-03-31] MEDS: DOCUSATE SODIUM 100 MG CAPSULE PO (08:03)
[2022-03-31] MEDS: POLYSACCHARIDE IRON COMPLEX 150 MG CAPSULE PO (08:04)
[2022-03-31 08:30] VITALS: BP 137/65; PULSE 70; RESP 18; TEMP 36.5; O2SAT 100
--- NOTE | 2022-03-31 09:45 | PC.NURSE ---
Patient to view the discharge video Mother & Baby Care, The First Two Weeks online. Patient was given the opportunity and encouraged to ask questions. Patient verbalized understanding of information shared and has been given the mother/baby guide for home reference.
--- NOTE | 2022-03-31 15:22 | PC.NURSE ---
Report received from primary RN this morning Mother is feeding her 37.5 EGA infants. She is feeding baby A with a nipple shield and bottle feeding, primarily feeding baby B the formula bottle related to weight loss. Infant's were born on 03/29 and reported to RN that the mother has a plan. 1140 patient was discharge before RN was able to make an introduction. Patient will see Wilma Gudino in follow up tomorrow at 0900 and will call if patient has concerns with .
[2022-04-01 09:41] VITALS: BP 131/81; PULSE 69; RESP 16; TEMP 36.8; O2SAT 98
== END 2022-03-31 11:40 | disposition home or self-care (01) | DRG 560 ==
LOC: ANHLDR 05:56 → ANHOB2 03-29 07:49
PROVIDERS: Admitting Provider Obstetrics & Gynecology; Visit Provider Obstetrics & Gynecology
DX: O30.043 Twin pregnancy, dichorionic/diamniotic, third trimester (principal); Z37.0 Single live birth; Z3A.37 37 weeks gestation of pregnancy; O72.1 Other immediate postpartum hemorrhage; O14.04 Mild to moderate pre-eclampsia, complicating childbirth; O70.0 First degree perineal laceration during delivery; O99.824 Streptococcus B carrier state complicating childbirth; O99.284 Endocrine, nutritional and metabolic diseases complicating childbirth; E03.9 Hypothyroidism, unspecified; O99.344 Other mental disorders complicating childbirth; F41.9 Anxiety disorder, unspecified
CPT/HCPCS: 36415; 85014; 85018; 85025; 86592; 86850; 86900; 86901; 88307; A9270; J0290; J2405; J2590; J2795; J7120

== ENCOUNTER 2022-04-06 04:16 | Emergency (ER) | payer OTHER, SELFPAY ==
[2022-04-06 04:21] VITALS: BP 134/66; PULSE 93; RESP 14; TEMP 38.1; O2SAT 97
--- NOTE | 2022-04-06 05:21 | ED.GENADULT ---
HPI - General Adult General Chief complaint: Fever Stated complaint: fever, L breast pain Time Seen by Provider: 04/06/22 05:13 History of Present Illness HPI narrative: Patient 49-year-old female presents the emergency department with chief complaint of fever and left breast pain. Patient reports that she is approximately 1 week after a twin intrauterine . The patient reports that she has been breast-feeding and reports that she noticed that she started spiking a temperature and has been having uncomfortable feelings in her left breast. Patient states it is tender swollen feels similar to when she has had mastitis in the past. Patient states that she would like to be started on some antibiotics and would like to follow-up with her OB. Related Data Home Medications Medication Instructions Recorded Confirmed Classic 1 tablet PO DAILY 12/15/21 03/28/22 levothyroxine 100 mcg tablet 1 tablet PO DAILY 12/15/21 03/28/22 sertraline 50 mg tablet 50 mg PO DAILY 01/14/22 03/28/22 Allergies Allergy/AdvReac Type Severity Reaction Status Date / Time No Known Allergies Allergy Verified 03/28/22 07:21 Review of Systems Review of Systems: A 10 system review of systems was completed on the patient and is negative except for what is stated in the HPI. Nursing and ancillary documentation was reviewed. [facility] Past Medical History Medical History No significant medical problems Family History Family History Mother Hyperthyroidism Grandparent Colon cancer Social History Social History Smoking status: Never smoker Second hand tobacco smoke exposure: No Substance use: never Gender identity (if verbalized by the patient): Female Spiritual care concerns: No Exam Narrative: GENERAL: Well-appearing, well-nourished, and in no acute distress. HEAD: Normocephalic, atraumatic. EYES: PERRLA and EOMI. ENT: Nares clear, no rhinorrhea or epistaxis. Mucous membranes moist. NECK: Supple. CHEST: Clear to auscultation. No respiratory distress. There is tenderness in the left breast there is no fluctuance there is no discernible abscess present. HEART: Regular rate and rhythm. No murmur heard. Normal peripheral pulses. ABDOMEN: Soft, nontender, nondistended, normal active bowel sounds. EXTREMITIES: Normal range of motion. No edema. SKIN: Warm, dry, no rash. NEURO: No focal deficits. Alert and oriented x3. PSYCH: Normal mood and affect. Course Course Emergency Course: Patient was started on dicloxacillin for mastitis. Vital Signs Vital signs: Vital Signs Temperature 38.1 C H 04/06/22 04:21 Pulse Rate 93 04/06/22 04:21 Respiratory Rate 14 04/06/22 04:21 Blood Pressure 134/66 04/06/22 04:21 Pulse Oximetry 97 04/06/22 04:21 Oxygen Delivery Room Air 04/06/22 04:21 Temperature 38.1 C H 04/06/22 04:21 Pulse Rate 93 04/06/22 04:21 Respiratory Rate 14 04/06/22 04:21 Blood Pressure 134/66 04/06/22 04:21 Pulse Oximetry 97 04/06/22 04:21 Oxygen Delivery Room Air 04/06/22 04:21 Medical Decision Making Vital Signs Vital Signs: Vital Signs Temperature 38.1 C H 04/06/22 04:21 Pulse Rate 93 04/06/22 04:21 Respiratory Rate 14 04/06/22 04:21 Blood Pressure 134/66 04/06/22 04:21 Pulse Oximetry 97 04/06/22 04:21 Oxygen Delivery Room Air 04/06/22 04:21 Temperature 38.1 C H 04/06/22 04:21 Pulse Rate 93 04/06/22 04:21 Respiratory Rate 14 04/06/22 04:21 Blood Pressure 134/66 04/06/22 04:21 Pulse Oximetry 97 04/06/22 04:21 Oxygen Delivery Room Air 04/06/22 04:21 Discharge Plan Discharge Clinical Impression: Acute mastitis of left breast Patient Disposition: Home, Self-Care Condition: Stable Instructions: Antibioti
[2022-04-06] MEDS: DICLOXACILLIN SODIUM 250 MG CAPSULE 500 MG PO (05:43)
== END 2022-04-06 05:46 | disposition home or self-care (01) ==
PROVIDERS: Emergency Provider Emergency Medicine; PCP Physician Assistant
DX: O91.22 Nonpurulent mastitis associated with the puerperium (principal)
CPT/HCPCS: 99283; A9270

== ENCOUNTER 2024-08-09 08:43 | Outpatient (CLI) | payer MEDICAID, SELFPAY | END 2024-08-09 08:44 | disposition home or self-care (01) | LOC: ANHIMG 08:44 | PROVIDERS: PCP Physician Assistant; Visit Provider Nurse Practitioner | DX: N63.20 Unspecified lump in the left breast, unspecified quadrant (principal) | CPT/HCPCS: 76641; 76642 ==